=== PATIENT | male | born 1980 | race Caucasian/White ===

== ENCOUNTER 2023-02-16 14:26 | Outpatient (CLI) | payer OTHER, SELFPAY | END 2023-02-16 14:27 | disposition home or self-care (01) | PROVIDERS: PCP Family Medicine; Visit Provider Family Medicine | DX: Z00.00 Encounter for general adult medical examination without abnormal findings (principal); R03.0 Elevated blood-pressure reading, without diagnosis of hypertension; R53.83 Other fatigue; F32.A Depression, unspecified; R35.89 Other polyuria | CPT/HCPCS: 80053; 84443 ==